=== PATIENT | female | born 1970 | race Caucasian/White ===

== ENCOUNTER 2017-05-20 17:33 | Outpatient (CLI) | payer OTHER | END 2017-05-20 17:34 | disposition EMS.NT | LOC: EMS 17:33 | PROVIDERS: ATTEND Surgery | DX: S41.112A Laceration without foreign body of left upper arm, initial encounter (principal); X78.9XXA Intentional self-harm by unspecified sharp object, initial encounter ==

== ENCOUNTER 2017-05-20 18:31 | Emergency (ER) | payer OTHER ==
--- NOTE | 2017-05-20 18:59 | ED Physician Documentation ---
PD HPI MHE - Stated complaint Stated Complaint: MHE - Chief complaint Chief Complaint: MHE - History obtained from History obtained from: Patient, Police - History of Present Illness Primary symptom: Other (Brought in by [employer] deputy for potential suicidal ideation. She admits she is under a lot of stress, going through divorce. She had some wine tonight and in a fit of anxiety she did cut herself to the left forearm with a knife but denies that this was a suicide attempt. The knife was removed by her brother and then [facility]'s deputies were called and brought her in under involuntary treatment.) Review of Systems Ten Systems: 10 systems reviewed and negative Constitutional: denies: Fever, Chills, Myalgias Nose: reports: Rhinorrhea / runny nose. denies: Sinus pressure / pain Respiratory: reports: Cough. denies: Dyspnea GI: denies: Abdominal Pain, Nausea, Vomiting PD PAST MEDICAL HISTORY - Past Medical History Past Medical History: Yes Psych: Anxiety, Other Other Past Medical History: insomnia - Past Surgical History Past Surgical History: Yes HEENT: Rhinoplasty - Present Medications Home Medications: Ambulatory Orders Medication Instructions Recorded Confirmed Alprazolam 1 mg PO TID PRN 05/20/17 05/20/17 Buspirone HCl 20 mg PO BID 05/20/17 05/20/17 Escitalopram Oxalate [Lexapro] 20 mg PO DAILY 05/20/17 05/20/17 Lorazepam 1 - 2 mg PO DAILY PRN 05/20/17 05/20/17 Nitrofurantoin Monohyd/M-Cryst 1 tab PO Q12H 05/20/17 05/20/17 [Nitrofurantoin [place]-Mcr 100 mg] Norethindrone AC-Eth Estradiol 1 tab PO DAILY 05/20/17 05/20/17 [Junel 1 mg-20 Mcg Tablet] Temazepam [Restoril] 30 mg PO DAILY 05/20/17 05/20/17 Zolpidem Tartrate [Ambien] 10 mg PO DAILY 05/20/17 05/20/17 - Allergies Allergies/Adverse Reactions: Allergies Allergy/AdvReac Type Severity Reaction Status Date / Time No Known Drug Allergies Allergy Verified 05/20/17 18:37 - Social History Does the pt smoke?: No Smoking Status: Never smoker Does the pt drink ETOH?: Yes Does the pt have substance abuse?: No - Family History Family history: reports: Non contributory PD ED PE NORMAL - Vitals Vital signs reviewed: Yes - General General: Alert and oriented X 3, No acute distress - HEENT HEENT: PERRL, EOMI - Neck Neck: Supple, no meningeal sign, No bony TTP - Cardiac Cardiac: RRR, No murmur - Respiratory Respiratory: No respiratory distress, Clear bilaterally - Abdomen Abdomen: Normal bowel sounds, Soft, Non tender - Back Back: No CVA TTP, No spinal TTP - Derm Derm: Normal color, Warm and dry - Extremities Extremities: Other (Shallow linear longitudinal scrapes to the anterior left forearm consistent with self-inflicted lacerations, no deep tissue injury. She says her tetanus is up-to-date.) - Neuro Neuro: Alert and oriented X 3, No motor deficit, No sensory deficit, Normal speech - Psych Psych: Normal mood, Normal affect Results - Vitals Vitals: Vital Signs - 24 hr 05/20/17 18:32 Temperature 37.1 C Heart Rate 79 Respiratory 18 Rate Blood Pressure 153/86 H O2 Saturation 98 Oxygen O2 Source Room air - Labs Labs: Laboratory Tests 05/20/17 05/20/17 05/20/17 19:07 19:07 19:15 WBC 5.3 RBC 4.17 L Hgb 13.7 Hct 39.6 MCV 95.0 MCH 33.0 H MCHC 34.7 RDW 13.8 Plt Count 226 MPV 7.8 L Neut # 3.2 Lymph # 1.6 [place] # 0.4 Eos # 0.1 Baso # 0.0 Absolute Nucleated RBC 0.00 Nucleated RBC % 0.0 Sodium 136 Potassium 4.0 Chloride 103 Carbon Dioxide 24 Anion Gap 9.0 BUN 13 Creatinine 0.7 Estimated GFR (MDRD) 89 Glucose 87 Calcium 8.6 Total Bilirubin 0.6 AST 20 ALT 18 Alkaline Phosphatase 46 Total Protein 7.2 Albumin 4.2 Globulin 3.0 Albumin/Globulin Ratio 1.4 Lipase 25 Urine Color Urine Clarity Urine pH Ur Specific [place] Urine Protein Urine Glucose (UA) Urine Ketones Urine Occult Blood Urine Nitrite Urine Bilirubin Urine Urobilinogen Ur Leukocyte Esterase Ur Microscopic Review Urine Culture Comments Urine HCG, Qual Urine Opiates Screen NEGATIVE Ur Oxycodone Screen NEGATIVE Urine Methadone Screen NEGATIVE Ur Propoxyphene Screen NEGATIVE Ur Barbiturates Screen NEGATIVE Ur Tricyclics Screen NEGATIVE Ur Phencyclidine Scrn NEGATIVE Ur Amphetamine Screen NEGATIVE U Methamphetamines Scrn NEGATIVE U Benzodiazepines Scrn POSITIVE H Urine Cocaine Screen NEGATIVE U Cannabinoids Screen NEGATIVE Ethyl Alcohol 61.6 05/20/17 19:15 WBC RBC Hgb Hct MCV MCH MCHC RDW Plt Count MPV Neut # Lymph # [place] # Eos # Baso # Absolute Nucleated RBC Nucleated RBC % Sodium Potassium Chloride Carbon Dioxide Anion Gap BUN Creatinine Estimated GFR (MDRD) Glucose Calcium Total Bilirubin AST ALT Alkaline Phosphatase Total Protein Albumin Globulin Albumin/Globulin Ratio Lipase Urine Color YELLOW Urine Clarity CLEAR Urine pH 6.0 Ur Specific [place] 1.025 Urine Protein NEGATIVE Urine Glucose (UA) NEGATIVE Urine Ketones NEGATIVE Urine Occult Blood NEGATIVE Urine Nitrite NEGATIVE Urine Bilirubin NEGATIVE Urine Urobilinogen 0.2 (NORMAL) Ur Leukocyte Esterase NEGATIVE Ur Microscopic Review NOT INDICATED Urine Culture Comments NOT INDICATED Urine HCG, Qual NEGATIVE Urine Opiates Screen Ur Oxycodone Screen Urine Methadone Screen Ur Propoxyphene Screen Ur Barbiturates Screen Ur Tricyclics Screen Ur Phencyclidine Scrn Ur Amphetamine Screen U Methamphetamines Scrn U Benzodiazepines Scrn Urine Cocaine Screen U Cannabinoids Screen Ethyl Alcohol PD MEDICAL DECISION MAKING - ED course ED course: 46-year-old woman brought in by [facility]'s deputy for potential suicidal ideation which she denies. She is not legally or clinically intoxicated here. Cooperative mother at the bedside. Stress that we would be happy to see her again if she develops significant depression or suicidal ideation which she continues to deny. Departure - Departure Disposition: 01 Home, Self Care Clinical Impression: Grief reaction Condition: Good Record reviewed to determine appropriate education?: Yes Instructions: ED Stress React Comments: Your blood pressure was elevated today on check into the emergency department. This does not mean that you have hypertension, it is a common phenomenon to come to the emergency department and have elevated blood pressure. I recommend that you see your primary care physician within the week to have it rechecked when you are feeling better. Call your doctor to arrange a follow-up appointment, make the next available appointment. In the interim, return anytime if worse or if new symptoms develop.
[2017-05-20 19:14] LABS: BASOPHILS % (AUTO) 0.5 %; EOSINOPHILS # (AUTO) 0.1 10^3/uL (0.0-0.7); EOSINOPHILS % (AUTO) 2.5 %; HCT - HEMATOCRIT 39.6 % (37.0-47.0); HGB - HEMOGLOBIN 13.7 g/dL (12.0-16.0); LYMPHOCYTES # (AUTO) 1.6 10^3/uL (1.5-3.5); LYMPHOCYTES % (AUTO) 30.3 %; MEAN CORPUSCULAR HGB CONC 34.7 g/dL (32.0-36.0); MEAN PLATELET VOLUME 7.8 fL (7.9-10.8); MONOCYTES # (AUTO) 0.4 10^3/uL (0.0-1.0); MONOCYTES % (AUTO) 7.1 %; NEUTROPHILS # (AUTO) 3.2 10^3/uL (1.5-6.6); NEUTROPHILS % (AUTO) 59.6 %; RED BLOOD COUNT 4.17 10^6/uL (4.20-5.40); RED CELL DISTRIBUTION WIDTH 13.8 % (12.0-15.0); UNCORRECTED WHITE BLOOD COUNT 5.3 x10^3/uL; WHITE BLOOD COUNT 5.3 x10^3/uL (4.8-10.8)
[2017-05-20 19:24] LABS: ALBUMIN/GLOBULIN RATIO 1.4 (1.0-2.2); BILIRUBIN,TOTAL 0.6 mg/dL (0.2-1.0); CALCIUM 8.6 mg/dL (8.5-10.3); CREATININE 0.7 mg/dL (0.4-1.0); TOTAL PROTEIN 7.2 g/dL (6.7-8.2)
[2017-05-20 19:29] LABS: BILIRUBIN,URINE NEGATIVE (NEGATIVE); UA CHARGE (STRIP ONLY) YES; UR CULTURE IF IND NOT INDICATED
[2017-05-20 19:31] LABS: HCG UR QUAL NEGATIVE
[2017-05-20] MEDS ORDERED: BACITRACIN OINT TOP ONE (19:54)
[2017-05-20] MEDS ORDERED: BACITRACIN OINT TOP STA (19:54)
[2017-05-20 20:00] VITALS: BP 148/89
== END 2017-05-20 20:00 | disposition home or self-care (01) ==
LOC: ED 18:31
DX: F43.20 Adjustment disorder, unspecified (principal); S51.812A Laceration without foreign body of left forearm, initial encounter; X78.1XXA Intentional self-harm by knife, initial encounter; R03.0 Elevated blood-pressure reading, without diagnosis of hypertension
CPT/HCPCS: 36415; 80053; 80306; 80320; 81003; 81025; 83690; 85025; 99284; A9270; 81001; 87086

== ENCOUNTER 2020-05-04 08:00 | Outpatient (CLI) | payer OTHER ==
--- NOTE | 2020-05-04 15:13 | XRAY Report ---
PROCEDURE: Ankle 3 View LT INDICATIONS: LEFT ANKLE PAIN TECHNIQUE: 3 views of the ankle were acquired. COMPARISON: None FINDINGS: Bones: No fractures or dislocations. Ankle mortise is normally aligned. No suspicious bony lesions . Soft tissues: Moderate tibiotalar joint effusion. Achilles tendon appears normal. IMPRESSION: Moderate effusion. No visualized acute fracture or dislocation. However, occult injury c annot be excluded. Recommend short interval imaging follow-up in 7-10 days as clinically indicated fo r additional evaluation. Reviewed by: Steffi Hayes MD on 05/04/2020 3:12 PM PDT Approved by: Steffi Hayes MD on 05/04/2020 3:12 PM PDT Station ID: [id number]
== END 2020-05-04 23:59 | disposition home or self-care (01) ==
LOC: DI.S 08:00
PROVIDERS: ATTEND Physician Assistant
DX: M25.572 Pain in left ankle and joints of left foot (principal); M25.472 Effusion, left ankle

== ENCOUNTER 2020-09-13 12:00 | Outpatient (CLI) | payer OTHER | END 2020-09-13 12:01 | disposition critical access hospital (66) | LOC: EMS 12:00 | PROVIDERS: ATTEND Emergency Medicine | DX: T50.902A Poisoning by unspecified drugs, medicaments and biological substances, intentional self-harm, initial encounter (principal) | CPT/HCPCS: A0425; A0427 ==

== ENCOUNTER 2020-09-13 12:33 | Emergency (ER) | payer OTHER ==
--- NOTE | 2020-09-13 13:08 | ED Physician Documentation ---
PD HPI MHE - Stated complaint Stated Complaint: SI - Chief complaint Chief Complaint: MHE - History obtained from History obtained from: Patient, EMS, Police - History of Present Illness Primary symptom: Self harm - OD Timing - onset: How many hours ago (3) Pain level max: 0 Pain level now: 0 Contributing factors: Family - Additional information Additional information: Patient is a 50-year-old female who presents to the emergency department stating that she is unsure why she is here. Per EMS her brother wrestle the gun away from her and she grabbed her bottle of lorazepam and took several pills. Unknown amount. The ingestion was approximately 3 hours prior to arrival. Patient states she also drank a bottle of "skinny girl lia". She states she is not suicidal or at all. She states she has no intention of hurting herself. She states that she was "tired and wanted to go back to sleep". Patient states that she has a history of anxiety. Denies any prior suicide attempts. 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 As well. Police did place the patient on an involuntary hold. Her brother states that she was actively suicidal and threatening to kill herself according to the police paperwork. Review of Systems Constitutional: denies: Fever, Chills Respiratory: denies: Cough GI: denies: Vomiting, Diarrhea : denies: Dysuria Skin: denies: Rash Musculoskeletal: denies: Neck pain, Back pain Neurologic: denies: Headache PD PAST MEDICAL HISTORY - Past Medical History Past Medical History: Yes Psych: Anxiety, Other - Past Surgical History Past Surgical History: Yes HEENT: Rhinoplasty - Present Medications Home Medications: Ambulatory Orders Medication Instructions Recorded Confirmed ALPRAZolam [Alprazolam] 1 mg PO TID PRN 05/20/17 05/20/17 Buspirone HCl 20 mg PO BID 05/20/17 05/20/17 Escitalopram Oxalate [Lexapro] 20 mg PO DAILY 05/20/17 05/20/17 LORazepam [Lorazepam] 1 - 2 mg PO DAILY PRN 05/20/17 05/20/17 Nitrofurantoin Monohyd/M-Cryst 1 tab PO Q12H 05/20/17 05/20/17 [Nitrofurantoin [place]-Mcr 100 mg] Norethindrone AC-Eth Estradiol 1 tab PO DAILY 05/20/17 05/20/17 [Junel 1 mg-20 Mcg Tablet] Temazepam [Restoril] 30 mg PO DAILY 05/20/17 05/20/17 Zolpidem Tartrate [Ambien] 10 mg PO DAILY 05/20/17 05/20/17 - Allergies Allergies/Adverse Reactions: Allergies Allergy/AdvReac Type Severity Reaction Status Date / Time No Known Drug Allergies Allergy Verified 09/13/20 12:49 - Social History Does the pt smoke?: No Smoking Status: Never smoker Does the pt drink ETOH?: Yes Does the pt have substance abuse?: No PD ED PE NORMAL - Vitals Vital signs reviewed: Yes - General General: Alert and oriented X 3, No acute distress - HEENT HEENT: Moist mucous membranes - Neck Neck: Supple, no meningeal sign - Cardiac Cardiac: RRR, Strong equal pulses - Respiratory Respiratory: No respiratory distress, Clear bilaterally - Abdomen Abdomen: Soft, Non tender, Non distended - Derm Derm: Warm and dry, No rash - Extremities Extremities: No edema, No calf tenderness / cord - Neuro Neuro: Alert and oriented X 3 - Psych Psych: Normal mood, Normal affect Results - Vitals Vitals: Vital Signs - 24 hr 09/13/20 09/13/20 09/13/20 12:42 13:00 14:12 Temperature 37.0 C 36.9 C Heart Rate 103 H 86 84 Respiratory 20 18 22 Rate Blood Pressure 167/110 H 153/98 H 132/87 H O2 Saturation 95 98 94 09/13/20 15:08 Temperature Heart Rate 89 Respiratory 18 Rate Blood Pressure 143/87 H O2 Saturation 99 Oxygen O2 Source Room air - EKG (time done) 1427 Rate: Rate (enter#) (82) Rhythm: NSR [place]: Normal Intervals: Normal IA QRS: Normal Ischemia: Normal ST segments - Labs Labs: Laboratory Tests 09/13/20 09/13/20 09/13/20 13:16 13:16 13:16 WBC 6.1 RBC 4.51 Hgb 13.9 Hct 42.5 MCV 94.2 MCH 30.8 MCHC 32.7 RDW 14.4 Plt Count 263 MPV 9.6 Neut # (Auto) 4.3 Lymph # (Auto) 1.5 [place] # (Auto) 0.2 Eos # (Auto) 0.1 Baso # (Auto) 0.0 Absolute Nucleated RBC 0.00 Nucleated RBC % 0.0 Sodium 139 Potassium 3.8 Chloride 105 Carbon Dioxide 21 Anion Gap 13.0 BUN 12 Creatinine 0.7 Estimated GFR (MDRD) 88 L Glucose 94 Calcium 9.1 Total Bilirubin 0.3 AST 20 ALT 19 Alkaline Phosphatase 40 L Total Protein 7.5 Albumin 4.3 Globulin 3.2 Albumin/Globulin Ratio 1.3 Lipase 29 TSH 1.44 Urine Color Urine Clarity Urine pH Ur Specific [place] Urine Protein Urine Glucose (UA) Urine Ketones Urine Occult Blood Urine Nitrite Urine Bilirubin Urine Urobilinogen Ur Leukocyte Esterase Ur Microscopic Review Urine Culture Comments Urine HCG, Qual Nasal Adenovirus (PCR) Nasal B. parapertussis DNA (PCR) Nasal Coronavir 229E PCR Nasal Coronavir HKU1 PCR Nasal Coronavir NL63 PCR Nasal Coronavir OC43 PCR Nasal Enterovir/Rhinovir PCR Nasal Influenza B PCR Nasal Influenza A PCR Nasal Parainfluen 1 PCR Nasal Parainfluen 2 PCR Nasal Parainfluen 3 PCR Nasal Parainfluen 4 PCR Nasal RSV (PCR) Nasal B.pertussis DNA PCR Nasal C.pneumoniae (PCR) [place] Human Metapneumo PCR Nasal M.pneumoniae (PCR) Nasal SARS-CoV-2 (PCR) Salicylates < 6.0 Urine Opiates Screen Ur Oxycodone Screen Urine Methadone Screen Ur Propoxyphene Screen Acetaminophen < 10 L Ur Barbiturates Screen Ur Tricyclics Screen Ur Phencyclidine Scrn Ur Amphetamine Screen U Methamphetamines Scrn U Benzodiazepines Scrn Urine Cocaine Screen U Cannabinoids Screen Ethyl Alcohol 187.0 09/13/20 09/13/20 09/13/20 13:42 13:50 17:30 WBC RBC Hgb Hct MCV MCH MCHC RDW Plt Count MPV Neut # (Auto) Lymph # (Auto) [place] # (Auto) Eos # (Auto) Baso # (Auto) Absolute Nucleated RBC Nucleated RBC % Sodium Potassium Chloride Carbon Dioxide Anion Gap BUN Creatinine Estimated GFR (MDRD) Glucose Calcium Total Bilirubin AST ALT Alkaline Phosphatase Total Protein Albumin Globulin Albumin/Globulin Ratio Lipase TSH Urine Color STRAW Urine Clarity CLEAR Urine pH 6.0 Ur Specific [place] <=1.005 Urine Protein NEGATIVE Urine Glucose (UA) NEGATIVE Urine Ketones NEGATIVE Urine Occult Blood NEGATIVE Urine Nitrite NEGATIVE Urine Bilirubin NEGATIVE Urine Urobilinogen 0.2 (NORMAL) Ur Leukocyte Esterase NEGATIVE Ur Microscopic Review NOT INDICATED Urine Culture Comments NOT INDICATED Urine HCG, Qual NEGATIVE Nasal Adenovirus (PCR) NOT DETECTED Nasal B. parapertussis DNA (PCR) NOT DETECTED Nasal Coronavir 229E PCR NOT DETECTED Nasal Coronavir HKU1 PCR NOT DETECTED Nasal Coronavir NL63 PCR NOT DETECTED Nasal Coronavir OC43 PCR NOT DETECTED Nasal Enterovir/Rhinovir PCR NOT DETECTED Nasal Influenza B PCR NOT DETECTED Nasal Influenza A PCR NOT DETECTED Nasal Parainfluen 1 PCR NOT DETECTED Nasal Parainfluen 2 PCR NOT DETECTED Nasal Parainfluen 3 PCR NOT DETECTED Nasal Parainfluen 4 PCR NOT DETECTED Nasal RSV (PCR) NOT DETECTED Nasal B.pertussis DNA PCR NOT DETECTED Nasal C.pneumoniae (PCR) NOT DETECTED [place] Human Metapneumo PCR NOT DETECTED Nasal M.pneumoniae (PCR) NOT DETECTED Nasal SARS-CoV-2 (PCR) NOT DETECTED Salicylates Urine Opiates Screen NEGATIVE Ur Oxycodone Screen NEGATIVE Urine Methadone Screen NEGATIVE Ur Propoxyphene Screen NEGATIVE Acetaminophen Ur Barbiturates Screen NEGATIVE Ur Tricyclics Screen NEGATIVE Ur Phencyclidine Scrn NEGATIVE Ur Amphetamine Screen NEGATIVE U Methamphetamines Scrn NEGATIVE U Benzodiazepines Scrn POSITIVE H Urine Cocaine Screen NEGATIVE U Cannabinoids Screen NEGATIVE Ethyl Alcohol 80.2 PD MEDICAL DECISION MAKING - ED course Complexity details: reviewed results, re-evaluated patient, considered differential, d/w patient, d/w claims consultant ED course: Patient placed on an involuntary treatment hold by police. She was allowed to sober in the emergency department. DCR dispatched. Patient is medically clear for psychiatric care. Sanjana BYRNE, evaluated the patient and the patient was placed on an involuntary hold. Patient signed out to the oncoming emergency department physician. This document was made in part using voice recognition software. While efforts are made to proofread this document, sound alike and grammatical errors may occur. Poison control was also contacted. The patient was observed for over 6 hours postingestion with no ill effects. No sedation. No respiratory issues. Departure - Departure Clinical Impression: Suicidal ideations Suicidal overdose Qualifiers: Encounter type: initial encounter Qualified Code(s): T50.902A - Poisoning by unspecified drugs, medicaments and biological substances, intentional self-harm, initial encounter Condition: Stable
[2020-09-13 13:22] LABS: BASOPHILS % (AUTO) 0.5 %; EOSINOPHILS # (AUTO) 0.1 10^3/uL (0.0-0.7); HGB - HEMOGLOBIN 13.9 g/dL (12.0-16.0); LYMPHOCYTES # (AUTO) 1.5 10^3/uL (1.5-3.5); LYMPHOCYTES % (AUTO) 25.1 %; MEAN CORPUSCULAR HEMOGLOBIN 30.8 pg (27.0-31.0); MEAN CORPUSCULAR HGB CONC 32.7 g/dL (32.0-36.0); MEAN CORPUSCULAR VOLUME 94.2 fL (81.0-99.0); MEAN PLATELET VOLUME 9.6 fL (7.9-10.8); MONOCYTES # (AUTO) 0.2 10^3/uL (0.0-1.0); MONOCYTES % (AUTO) 3.3 %; NEUTROPHILS # (AUTO) 4.3 10^3/uL (1.5-6.6); NEUTROPHILS % (AUTO) 69.9 %; PLT - PLATELET COUNT 263 10^3/uL (130-450); RED BLOOD COUNT 4.51 10^6/uL (4.20-5.40); RED CELL DISTRIBUTION WIDTH 14.4 % (12.0-15.0); WHITE BLOOD COUNT 6.1 x10^3/uL (4.8-10.8)
[2020-09-13 13:45] LABS: ACETAMINOPHEN < 10 ug/mL (10-30); ALBUMIN 4.3 g/dL (3.2-5.5); ALBUMIN/GLOBULIN RATIO 1.3 (1.0-2.2); ALKALINE PHOSPHATASE 40 IU/L (42-121); ALT ALANINE AMINOTRANSFERASE 19 IU/L (10-60); AST ASPARTATE AMINOTRANSFERASE 20 IU/L (10-42); BILIRUBIN,TOTAL 0.3 mg/dL (0.2-1.0); BUN - BLOOD UREA NITROGEN 12 mg/dL (6-20); CALCIUM 9.1 mg/dL (8.5-10.3); CARBON DIOXIDE - CO2 21 mmol/L (21-32); CHLORIDE 105 mmol/L (101-111); CREATININE 0.7 mg/dL (0.4-1.0); GLUCOSE 94 mg/dL (70-100); LIPASE 29 U/L (22-51); SALICYLATE < 6.0 mg/dL; TOTAL PROTEIN 7.5 g/dL (6.7-8.2)
[2020-09-13 14:15] LABS: MUDS CUTOFF CONCENTRATIONS CUTOFF CONC BELOW:
[2020-09-13 14:21] LABS: BILIRUBIN,URINE NEGATIVE (NEGATIVE); GLUCOSE, URINE (UA) NEGATIVE (NEGATIVE); KETONES,URINE (UA) NEGATIVE (NEGATIVE); LEUKOCYTE ESTERASE, URINE NEGATIVE (NEGATIVE); NITRITE,URINE NEGATIVE (NEGATIVE); OCCULT BLOOD,URINE NEGATIVE (NEGATIVE); PROTEIN,URINE NEGATIVE (NEGATIVE); UROBILINOGEN,URINE 0.2 (NORMAL) E.U./dL (NORMAL)
[2020-09-13 14:26] LABS: CLARITY,URINE CLEAR (CLEAR); HCG UR QUAL NEGATIVE
[2020-09-13 14:31] LABS: AMPHETAMINE SCREEN,URINE NEGATIVE (NEGATIVE); BENZODIAZEPINES SCREEN, URINE POSITIVE (NEGATIVE); COCAINE SCREEN URINE NEGATIVE (NEGATIVE); METHADONE SCREEN, URINE NEGATIVE (NEGATIVE); METHAMPHETAMINES SCREEN, URINE NEGATIVE (NEGATIVE); OPIATE SCREEN, URINE NEGATIVE (NEGATIVE); OXYCODONE SCREEN, URINE NEGATIVE (NEGATIVE); TRICYCLIC ANTIDEPRESSANT,URINE NEGATIVE (NEGATIVE)
[2020-09-13 14:32] LABS: PROPOXYPHENE SCREEN, URINE NEGATIVE (NEGATIVE)
[2020-09-13 14:42] LABS: C. PNEUMONIAE- RESP PCR PANEL NOT DETECTED
[2020-09-13] MEDS ORDERED: ACETAMINOPHEN 325 MG TABLET PO STA (22:35)
[2020-09-13 23:29] VITALS: BP 165/106
[2020-09-13] MEDS ORDERED: LORazepam 1 MG TABLET PO STA (23:57)
--- NOTE | 2020-09-13 23:59 | ED Physician Documentation ---
ED Addendum - Addendum Addendum: 09/13/20 23:57 The patient was evaluated by CATY Allan. She was deemed in need of i nvoluntary mcc for suicidal risk. The patient will be transferred to [facility] for psychiatric care. She did request some medications to help with anxiety for the ride. Ativan will be provided as a single dose here. Disposition the patient is transferred to psychiatric facility Diagnoses: acute suicidal ideation with suicide attempt and gesture. Depression.
== END 2020-09-14 01:00 ==
LOC: EDUNIT# → ED 12:33
DX: T42.4X2A Poisoning by benzodiazepines, intentional self-harm, initial encounter (principal); Y92.009 Unspecified place in unspecified non-institutional (private) residence as the place of occurrence of the external cause; F32.9 Major depressive disorder, single episode, unspecified; F41.9 Anxiety disorder, unspecified; Z20.822 Contact with and (suspected) exposure to COVID-19
CPT/HCPCS: 0202U; 36415; 80053; 80306; 80307; 80320; 80329; 81003; 81025; 83690; 84443; 85025; 93005; 99284; 99285; A9270; J8499; 81001; 87086

== ENCOUNTER 2021-04-16 06:35 | Outpatient (CLI) | payer OTHER | END 2021-04-16 06:36 | disposition critical access hospital (66) | LOC: EMS 06:35 | DX: R10.9 Unspecified abdominal pain (principal); R11.10 Vomiting, unspecified | CPT/HCPCS: A0425; A0427 ==

== ENCOUNTER 2021-04-16 07:07 | Observation (INO) | payer OTHER ==
--- NOTE | 2021-04-16 07:13 | ED Physician Documentation ---
PD HPI ABD PAIN - Stated complaint Stated Complaint: ABD PX/VOMITING - History obtained from History obtained from: Patient - History of Present Illness Timing - onset: How many hours ago (3-4), Last night Timing - duration: Hours Timing - details: Abrupt onset, Still present Quality: Cramping, Aching, Pain Location: RUQ, Epigastric Radiation: Upper back Improved by: No: Laying still, Vomiting Worsened by: Eating, Moving, Position, Palpation. No: Breathing Associated symptoms: Nausea. No: Fever, Diarrhea, Constipation, Dysuria Similar symptoms before: Has not had sx before Recently seen: Not recently seen Review of Systems Constitutional: denies: Fever, Chills Nose: denies: Rhinorrhea / runny nose, Congestion Throat: denies: Sore throat Cardiac: denies: Chest pain / pressure Respiratory: denies: Cough GI: reports: Abdominal Pain (the past few hours, abruptly), Nausea. denies: Constipation, Diarrhea : denies: Dysuria Neurologic: denies: Generalized weakness, Near syncope PD PAST MEDICAL HISTORY - Past Medical History Cardiovascular: None Respiratory: None Neuro: None Endocrine/Autoimmune: None GI: None Psych: Anxiety, Other - Past Surgical History Past Surgical History: Yes HEENT: Rhinoplasty - Present Medications Home Medications: Ambulatory Orders Medication Instructions Recorded Confirmed ALPRAZolam [Alprazolam] 1 mg PO TID PRN 05/20/17 04/16/21 Buspirone HCl 20 mg PO BID 05/20/17 04/16/21 Escitalopram Oxalate [Lexapro] 20 mg PO DAILY 05/20/17 04/16/21 LORazepam [Lorazepam] 1 - 2 mg PO DAILY PRN 05/20/17 04/16/21 Norethindrone AC-Eth Estradiol 1 tab PO DAILY 05/20/17 04/16/21 [Junel 1 mg-20 Mcg Tablet] Zolpidem Tartrate [Ambien] 10 mg PO DAILY 05/20/17 04/16/21 - Allergies Allergies/Adverse Reactions: Allergies Allergy/AdvReac Type Severity Reaction Status Date / Time No Known Drug Allergies Allergy Verified 04/16/21 07:23 - Social History Does the pt smoke?: No Smoking Status: Never smoker Does the pt drink ETOH?: Yes Does the pt have substance abuse?: No PD ED PE NORMAL - Vitals Vital signs reviewed: Yes - General General: Alert and oriented X 3, Well developed/nourished, Other (appears in considerable discomfort) - Neck Neck: Supple, no meningeal sign, No adenopathy - Cardiac Cardiac: RRR, No murmur - Respiratory Respiratory: Clear bilaterally - Abdomen Abdomen: Soft, Non distended, Other (tender with guarding epigastric and RUQ area without percussion tenderness. ). No: Normal bowel sounds (increased upper abd) - Female Female : Deferred - Rectal Rectal: Deferred - Back Back: No CVA TTP - Derm Derm: Normal color, Warm and dry - Extremities Extremities: No edema, No calf tenderness / cord - Neuro Neuro: Alert and oriented X 3, No motor deficit, Normal speech Results - Vitals Vitals: Vital Signs - 24 hr 04/16/21 04/16/21 04/16/21 07:07 07:31 08:26 Temperature 36.3 C L Heart Rate 64 69 73 Respiratory 16 16 16 Rate Blood Pressure 179/95 H 158/96 H 139/78 H O2 Saturation 97 97 100 04/16/21 04/16/21 04/16/21 08:43 09:58 10:32 Temperature Heart Rate 72 75 80 Respiratory 15 16 12 Rate Blood Pressure 145/90 H 147/90 H 134/91 H O2 Saturation 93 95 98 04/16/21 04/16/21 10:35 11:04 Temperature Heart Rate 76 76 Respiratory 11 L 12 Rate Blood Pressure 134/91 H 125/86 H O2 Saturation 96 97 Oxygen O2 Source Nasal cannula - Labs Labs: Laboratory Tests 04/16/21 04/16/21 04/16/21 08:01 08:01 09:07 WBC 6.2 RBC 4.16 L Hgb 13.1 Hct 39.2 MCV 94.2 MCH 31.5 H MCHC 33.4 RDW 14.5 Plt Count 193 MPV 10.1 Neut # (Auto) 4.6 Lymph # (Auto) 1.2 L [place] # (Auto) 0.2 Eos # (Auto) 0.1 Baso # (Auto) 0.0 Absolute Nucleated RBC 0.00 Nucleated RBC % 0.0 Sodium 140 Potassium 3.0 L Chloride 107 Carbon Dioxide 23 Anion Gap 10.0 BUN 15 Creatinine 0.6 Estimated GFR (MDRD) 105 Glucose 210 H Lactic Acid Calcium 8.2 L Magnesium 1.6 L Total Bilirubin 0.3 AST 13 ALT 17 Alkaline Phosphatase 29 L Total Protein 6.5 L Albumin 3.7 Globulin 2.8 Albumin/Globulin Ratio 1.3 Lipase 23 Urine Color LT. YELLOW Urine Clarity CLEAR Urine pH 6.0 Ur Specific Marshall 1.020 Urine Protein NEGATIVE Urine Glucose (UA) >=1000 H Urine Ketones 15 H Urine Occult Blood NEGATIVE Urine Nitrite NEGATIVE Urine Bilirubin NEGATIVE Urine Urobilinogen 0.2 (NORMAL) Ur Leukocyte Esterase NEGATIVE Ur Microscopic Review NOT INDICATED Urine Culture Comments NOT INDICATED Nasal Adenovirus (PCR) Nasal B. parapertussis DNA (PCR) Nasal Coronavir 229E PCR Nasal Coronavir HKU1 PCR Nasal Coronavir NL63 PCR Nasal Coronavir OC43 PCR Nasal Enterovir/Rhinovir PCR Nasal Influenza B PCR Nasal Influenza A PCR Nasal Parainfluen 1 PCR Nasal Parainfluen 2 PCR Nasal Parainfluen 3 PCR Nasal Parainfluen 4 PCR Nasal RSV (PCR) Nasal B.pertussis DNA PCR Nasal C.pneumoniae (PCR) [place] Human Metapneumo PCR Nasal M.pneumoniae (PCR) Nasal SARS-CoV-2 (PCR) Urine Opiates Screen Ur Oxycodone Screen Urine Methadone Screen Ur Propoxyphene Screen Ur Barbiturates Screen Ur Tricyclics Screen Ur Phencyclidine Scrn Ur Amphetamine Screen U Methamphetamines Scrn U Benzodiazepines Scrn Urine Cocaine Screen U Cannabinoids Screen Ethyl Alcohol < 5.0 04/16/21 04/16/21 04/16/21 09:07 09:59 10:18 WBC RBC Hgb Hct MCV MCH MCHC RDW Plt Count MPV Neut # (Auto) Lymph # (Auto) [place] # (Auto) Eos # (Auto) Baso # (Auto) Absolute Nucleated RBC Nucleated RBC % Sodium Potassium Chloride Carbon Dioxide Anion Gap BUN Creatinine Estimated GFR (MDRD) Glucose Lactic Acid 1.9 Calcium Magnesium Total Bilirubin AST ALT Alkaline Phosphatase Total Protein Albumin Globulin Albumin/Globulin Ratio Lipase Urine Color Urine Clarity Urine pH Ur Specific Marshall Urine Protein Urine Glucose (UA) Urine Ketones Urine Occult Blood Urine Nitrite Urine Bilirubin Urine Urobilinogen Ur Leukocyte Esterase Ur Microscopic Review Urine Culture Comments Nasal Adenovirus (PCR) NOT DETECTED Nasal B. parapertussis DNA (PCR) NOT DETECTED Nasal Coronavir 229E PCR NOT DETECTED Nasal Coronavir HKU1 PCR NOT DETECTED Nasal Coronavir NL63 PCR NOT DETECTED Nasal Coronavir OC43 PCR NOT DETECTED Nasal Enterovir/Rhinovir PCR NOT DETECTED Nasal Influenza B PCR NOT DETECTED Nasal Influenza A PCR NOT DETECTED Nasal Parainfluen 1 PCR NOT DETECTED Nasal Parainfluen 2 PCR NOT DETECTED Nasal Parainfluen 3 PCR NOT DETECTED Nasal Parainfluen 4 PCR NOT DETECTED Nasal RSV (PCR) NOT DETECTED Nasal B.pertussis DNA PCR NOT DETECTED Nasal C.pneumoniae (PCR) NOT DETECTED [place] Human Metapneumo PCR NOT DETECTED Nasal M.pneumoniae (PCR) NOT DETECTED Nasal SARS-CoV-2 (PCR) NOT DETECTED Urine Opiates Screen POSITIVE H Ur Oxycodone Screen NEGATIVE Urine Methadone Screen NEGATIVE Ur Propoxyphene Screen NEGATIVE Ur Barbiturates Screen NEGATIVE Ur Tricyclics Screen NEGATIVE Ur Phencyclidine Scrn NEGATIVE Ur Amphetamine Screen NEGATIVE U Methamphetamines Scrn NEGATIVE U Benzodiazepines Scrn POSITIVE H Urine Cocaine Screen NEGATIVE U Cannabinoids Screen NEGATIVE Ethyl Alcohol - Rads (name of study) abd CT Radiology: Prelim report reviewed, Discussed with rads (Small closed loop small bowel with obstruction and edema of the wall.), See rad report PD MEDICAL DECISION MAKING - ED course Complexity details: reviewed results, re-evaluated patient (Patient needing multiple repeat doses of pain medicine for maintaining moderate comfort. I have conveyed this to Dr. Springer.), considered differential (Consideration for ulcer versus pancreatitis versus obstruction versus gallbladder versus perforated v iscus or other problem. Her degree of pain is considerable so have a high suspicion for pathology. We will get labs and CT scan.), d/w patient, d/w data governance consultant (Dr. Springer, confectionery laboratory manager for surgery, who will write orders and come see the patient. ) Departure - Departure Disposition: ED Transfer to [facility] Clinical Impression: Acute upper abdominal pain, Small bowel obstruction Condition: Stable Record reviewed to determine appropriate education?: Yes
[2021-04-16] MEDS ORDERED: SODIUM CHLORIDE 0.9% 1,000 ML IV STA ×2 (07:17→10:14)
[2021-04-16] MEDS ORDERED: HYDROmorphone 1 MG/ML CARPUJECT IVP STA ×3 (07:17→09:34)
[2021-04-16] MEDS ORDERED: DROPERIDOL 5 MG/2 ML VIAL IVP STA (07:18)
[2021-04-16] MEDS ORDERED: KETOROLAC 15 MG/ML VIAL IVP STA (07:20)
[2021-04-16] MEDS ORDERED: IOPAMIDOL-300 100 ML VIAL ONE (07:30)
[2021-04-16 08:07] LABS: BASOPHILS % (AUTO) 0.3 %; EOSINOPHILS # (AUTO) 0.1 10^3/uL (0.0-0.7); EOSINOPHILS % (AUTO) 1.1 %; HCT - HEMATOCRIT 39.2 % (37.0-47.0); HGB - HEMOGLOBIN 13.1 g/dL (12.0-16.0); LYMPHOCYTES # (AUTO) 1.2 10^3/uL (1.5-3.5); LYMPHOCYTES % (AUTO) 19.3 %; MEAN CORPUSCULAR HEMOGLOBIN 31.5 pg (27.0-31.0); MEAN CORPUSCULAR HGB CONC 33.4 g/dL (32.0-36.0); MEAN CORPUSCULAR VOLUME 94.2 fL (81.0-99.0); MEAN PLATELET VOLUME 10.1 fL (7.9-10.8); MONOCYTES # (AUTO) 0.2 10^3/uL (0.0-1.0); MONOCYTES % (AUTO) 3.4 %; NEUTROPHILS # (AUTO) 4.6 10^3/uL (1.5-6.6); NEUTROPHILS % (AUTO) 75.4 %; PLT - PLATELET COUNT 193 10^3/uL (130-450); RED BLOOD COUNT 4.16 10^6/uL (4.20-5.40); RED CELL DISTRIBUTION WIDTH 14.5 % (12.0-15.0); WHITE BLOOD COUNT 6.2 x10^3/uL (4.8-10.8)
[2021-04-16] MEDS ORDERED: KETAMINE 500 MG/10 ML VIAL IVP STA ×2 (08:08→10:16)
[2021-04-16 08:21] LABS: ALBUMIN 3.7 g/dL (3.2-5.5); ALBUMIN/GLOBULIN RATIO 1.3 (1.0-2.2); ALKALINE PHOSPHATASE 29 IU/L (42-121); ALT ALANINE AMINOTRANSFERASE 17 IU/L (10-60); AST ASPARTATE AMINOTRANSFERASE 13 IU/L (10-42); BILIRUBIN,TOTAL 0.3 mg/dL (0.2-1.0); BUN - BLOOD UREA NITROGEN 15 mg/dL (6-20); CALCIUM 8.2 mg/dL (8.5-10.3); CARBON DIOXIDE - CO2 23 mmol/L (21-32); CHLORIDE 107 mmol/L (101-111); CREATININE 0.6 mg/dL (0.4-1.0); ETOH - ETHANOL < 5.0 mg/dL; GFR - MDRD 105 (>89); GLUCOSE 210 mg/dL (70-100); LIPASE 23 U/L (22-51); MAGNESIUM 1.6 mg/dL (1.7-2.8); SODIUM 140 mmol/L (135-145); TOTAL PROTEIN 6.5 g/dL (6.7-8.2)
[2021-04-16] MEDS ORDERED: FAMOTIDINE 20 MG/2 ML VIAL IVP STA (08:26)
[2021-04-16] MEDS ORDERED: IOPAMIDOL-300 100 ML VIAL IVP ONE (09:08)
[2021-04-16 09:11] LABS: MUDS CUTOFF CONCENTRATIONS CUTOFF CONC BELOW:
[2021-04-16 09:14] LABS: BILIRUBIN,URINE NEGATIVE (NEGATIVE); GLUCOSE, URINE (UA) >=1000 mg/dL (NEGATIVE); KETONES,URINE (UA) 15 mg/dL (NEGATIVE); LEUKOCYTE ESTERASE, URINE NEGATIVE (NEGATIVE); NITRITE,URINE NEGATIVE (NEGATIVE); OCCULT BLOOD,URINE NEGATIVE (NEGATIVE); PROTEIN,URINE NEGATIVE (NEGATIVE); UROBILINOGEN,URINE 0.2 (NORMAL) E.U./dL (NORMAL)
[2021-04-16 09:19] LABS: CLARITY,URINE CLEAR (CLEAR)
[2021-04-16 09:28] LABS: AMPHETAMINE SCREEN,URINE NEGATIVE (NEGATIVE); BARBITURATE SCREEN,UR NEGATIVE (NEGATIVE); BENZODIAZEPINES SCREEN, URINE POSITIVE (NEGATIVE); COCAINE SCREEN URINE NEGATIVE (NEGATIVE); METHADONE SCREEN, URINE NEGATIVE (NEGATIVE); METHAMPHETAMINES SCREEN, URINE NEGATIVE (NEGATIVE); OPIATE SCREEN, URINE POSITIVE (NEGATIVE); OXYCODONE SCREEN, URINE NEGATIVE (NEGATIVE); PROPOXYPHENE SCREEN, URINE NEGATIVE (NEGATIVE); THC CANNABINOID SCREEN, URINE NEGATIVE (NEGATIVE); TRICYCLIC ANTIDEPRESSANT,URINE NEGATIVE (NEGATIVE)
--- NOTE | 2021-04-16 10:52 | CT Report ---
PROCEDURE: 3 views of the left foot. INDICATIONS: The right kidney has a 3.5 x 4.0 x 3.6 cm simple cyst. CONTRAST: The proximal aorta is not well visualized however. TECHNIQUE: After the administration of intravenous contrast, 5 mm thick sections acquired from the diaphragm to the iliac crests. 5 mm coronal and sagittal reformats were performed. For radiation dose reduction, the following was used: automated exposure control, adjustment of mA and/or kV according to patient size. COMPARISON: There are degenerative changes of the interphalangeal joints area there is a fracture of the proximal phalanx of the great toe. 1. Fracture of the proximal phalanx of the great toe. 2. Degenerative changes of the toes. 3. Vascular calcifications in the foot. FINDINGS: Image quality: Excellent. Lung bases: Lung bases are clear. Heart size is normal. Solid organs: Liver and spleen are normal in size and enhancement. Gallbladder vasculature has athe rosclerotic calcifications. Biliary system is non dilated. Pancreas enhances normally. No adrenal nodules. Kidneys demonstrate normal size and enhancement, without hydronephrosis. Peritoneum and bowel: The distal esophagus is normal. There is dilated small bowel in the right mid a bdomen just inferior to the right lobe of the liver which demonstrates hyperenhancement of the dooley. Proximal small bowel loops are slightly dilated. Contrast does not progress beyond this point. The a ppearance is suspicious for a closed loop obstruction with a rotation of the vascular pedicle. Nodes and vessels: No retroperitoneal or mesenteric adenopathy by size criteria. Aorta and inferior vena cava are normal in size. Miscellaneous: No ventral hernias. IMPRESSION: Closed-loop obstruction of the mid to distal ileum in the right midabdomen with small bow el obstruction proximally. The dooley of the involved segment of small bowel demonstrate hyperenhancem ent concerning for ischemia. Findings were discussed with Dr. Haro no acute cardiopulmonary abnormality Reviewed by: Juan Manuel Christensen on 04/16/2021 10:51 AM PDT Approved by: Juan Manuel Christensen on 04/16/2021 10:51 AM PDT Station ID: [id number]
[2021-04-16 11:21] LABS: B. PARAPERTUSSIS- RESP PCR PAN NOT DETECTED; B. PERTUSSIS- RESP PCR PANEL NOT DETECTED; C. PNEUMONIAE- RESP PCR PANEL NOT DETECTED; CORONAVIRUS 229E-RESP PCR NOT DETECTED; CORONAVIRUS HKU1-RESP PCR NOT DETECTED; CORONAVIRUS NL63-RESP PCR NOT DETECTED; CORONAVIRUS OC43-RESP PCR NOT DETECTED; HUMAN METAPNEUMOVIRUS NOT DETECTED; INFLUENZA A- RESP PCR PANEL NOT DETECTED; INFLUENZA B - RESP PCR PANEL NOT DETECTED; M. PNEUMONIAE- RESP PCR PANEL NOT DETECTED; PARAINFLUENZA VIRUS 1 NOT DETECTED; PARAINFLUENZA VIRUS 2 NOT DETECTED; PARAINFLUENZA VIRUS 3 NOT DETECTED; PARAINFLUENZA VIRUS 4 NOT DETECTED; RHINOVIRUS/ENTEROVIRUS NOT DETECTED; RSV- RESP PCR PANEL NOT DETECTED; SARS-CoV-2 -RESP PCR PANEL NOT DETECTED
[2021-04-16] MEDS ORDERED: ONDANSETRON ODT 4 MG TABLET TL PRN (11:35)
[2021-04-16] MEDS ORDERED: MAGNESIUM SULFATE 2 GRAM 2 GM/50 ML BAG IV ONE (11:49)
--- NOTE | 2021-04-16 11:53 | HISTORY & PHYSICAL EXAMINATION ---
Chief Complaint - Chief Complaint Chief Complaint: awoke 6 am with severe abdominal pain History of Present Illness - Admitted From Admitted From:: ed - History Obtained From Records Reviewed: yes History obtained from: pt Exam Limitations: none - History of Present Illness HPI Comment/Other: Awoke 6 am with severe abdominal pain and nausea. Never had prior similar symptoms. No prior abdominal surgery. She recently had 40 lb intentional weight loss. She had bread and spinich dip last pm. Feeling much improved. Denies nausea at this time and minimal pain and tenderness. History - Past Medical History Cardiovascular: reports: None Respiratory: reports: None Neuro: reports: None Endocrine/Autoimmune: reports: None GI: reports: None Psych: reports: Anxiety, Other MRSA Hx?: Yes - Past Surgical History HEENT: reports: Rhinoplasty Meds/Allgy - Home Medications Home Medications: Ambulatory Orders Medication Instructions Recorded Confirmed ALPRAZolam [Alprazolam] 1 mg PO TID PRN 05/20/17 04/16/21 Buspirone HCl 20 mg PO BID 05/20/17 04/16/21 Escitalopram Oxalate [Lexapro] 20 mg PO DAILY 05/20/17 04/16/21 LORazepam [Lorazepam] 1 - 2 mg PO DAILY PRN 05/20/17 04/16/21 Norethindrone AC-Eth Estradiol 1 tab PO DAILY 05/20/17 04/16/21 [Junel 1 mg-20 Mcg Tablet] Zolpidem Tartrate [Ambien] 10 mg PO DAILY 05/20/17 04/16/21 - Allergies Allergies/Adverse Reactions: Allergies Allergy/AdvReac Type Severity Reaction Status Date / Time No Known Drug Allergies Allergy Verified 04/16/21 07:23 Review of Systems - Other Findings Other Findings: 10 pt ros as above otherwise unremarkable Exam - Vital Signs Reviewed Vital Signs: Yes Vital Signs: Vital Signs x48h Temp Pulse Resp BP Pulse Ox 04/16/21 11:04 76 12 125/86 H 97 04/16/21 10:35 76 11 L 134/91 H 96 04/16/21 10:32 80 12 134/91 H 98 04/16/21 09:58 75 16 147/90 H 95 04/16/21 08:43 72 15 145/90 H 93 04/16/21 08:26 73 16 139/78 H 100 04/16/21 07:31 69 16 158/96 H 97 04/16/21 07:07 36.3 C L 64 16 179/95 H 97 - Physical Exam General Appearance: positive: No acute distress, Alert Eyes Bilateral: positive: PERRL, EOMI, No scleral icterus ENT: positive: No signs of dehydration Neck: positive: No JVD Respiratory: positive: No respiratory distress, Breath sounds nml Cardiovascular: positive: Regular rate & rhythm Abdomen: positive: No distention, Other (minimal right lower quadrant tenderness to deep palpation no peritoneal signs) Neurologic/Psychiatric: positive: Oriented x3 Conclusion/Plan - Problem List (1) Enteritis Conclusion/Plan: Plan admit for medical management with bowel rest, ivf, pain management as needed. Close observation. Ct scan report discussed with her. I also discussed doubtful in my opinion she has a closed loop bowel obstruction Treatment hypokalemia and hypomagnesium. Possible treatment elevated blood sugar. Recheck blood sugar and labs - Lab Results Fish Bones: 04/16/21 08:01 04/16/21 08:01 - Diagnostic Imaging Results Diagnostic Imaging Results: positive: Read independently (enteritis. closed loop bowel obstruction unlikely)
[2021-04-16] MEDS: POTASSIUM CHLOR 10 MEQ/100 ML 10 MEQ/100 ML BAG IV SCH ×6 (13:10→19:32)
[2021-04-16] MEDS: HYDROmorphone 0.5 MG/0.5 ML SYRINGE IVP PRN (13:18)
[2021-04-16] MEDS: ONDANSETRON 4 MG/2 ML VIAL IVP PRN (13:18)
[2021-04-16] MEDS: D5.45NS W/20 MEQ KCL 1,000 ML IV SCH ×2 (13:25→21:12)
[2021-04-16] MEDS: INSULIN REGULAR HUMAN 300 UNIT/3 ML VIAL SUBQ SCH ×3 (13:26→23:36)
--- NOTE | 2021-04-16 13:59 | PHARMACY PROGRESS NOTE ---
- Best Possible Medication History Admit Date and Time: 04/16/21 1135 Processed by: Nursing Medication History completed: Yes Patient Interview: Completed Secondary Source(s): Pharmacy records, Insurance records As the person ultimately responsible for medication therapy, providers are able to order a medication from an existing home medication list in [facility] via the "Reconcile Routine" prior to Confirmation of that medication by systems support engineer. Such practice is discouraged except when the physician, in their clinical judgment, deems that a medical need exists for a medication without regard to previous use.
[2021-04-16] MEDS: LORazepam 1 MG TABLET PO PRN ×2 (14:04→21:12)
[2021-04-16] MEDS: MAG HYDROX/AL HYDROX/SIMETH 30 ML UDC PO PRN (15:47)
[2021-04-16] MEDS: SODIUM CHLORIDE FLUSH 0.9% 10 ML SYRINGE IVP SCH ×2 (17:14→23:38)
[2021-04-16] MEDS: ETHINYL ESTRADIOL PO SCH (17:39)
[2021-04-16] MEDS: NORETHINDRONE PO SCH (17:39)
[2021-04-16] MEDS: FAMOTIDINE 20 MG TABLET PO SCH (21:12)
[2021-04-16] MEDS: busPIRone 5 MG TABLET PO SCH (21:13)
[2021-04-16] MEDS: ZOLPIDEM 5 MG TABLET PO PRN (21:25)
[2021-04-17] MEDS: ONDANSETRON 4 MG/2 ML VIAL IVP PRN ×2 (02:14→17:25)
[2021-04-17] MEDS: HYDROmorphone 0.5 MG/0.5 ML SYRINGE IVP PRN ×3 (02:14→19:41)
[2021-04-17] MEDS: SODIUM CHLORIDE FLUSH 0.9% 10 ML SYRINGE IVP PRN ×3 (02:15→19:41)
[2021-04-17] MEDS: D5.45NS W/20 MEQ KCL 1,000 ML IV SCH ×3 (04:57→20:41)
[2021-04-17] MEDS: LORazepam 1 MG TABLET PO PRN ×2 (05:07→16:50)
[2021-04-17 05:38] LABS: HCT - HEMATOCRIT 39.4 % (37.0-47.0); HGB - HEMOGLOBIN 13.1 g/dL (12.0-16.0); MEAN CORPUSCULAR HGB CONC 33.2 g/dL (32.0-36.0); MEAN CORPUSCULAR VOLUME 93.4 fL (81.0-99.0); MEAN PLATELET VOLUME 10.2 fL (7.9-10.8); RED BLOOD COUNT 4.22 10^6/uL (4.20-5.40); RED CELL DISTRIBUTION WIDTH 14.9 % (12.0-15.0); WHITE BLOOD COUNT 10.3 x10^3/uL (4.8-10.8)
[2021-04-17 05:43] LABS: CREATININE 0.7 mg/dL (0.4-1.0); MAGNESIUM 2.2 mg/dL (1.7-2.8); POTASSIUM 3.8 mmol/L (3.5-5.0)
[2021-04-17] MEDS: INSULIN REGULAR HUMAN 300 UNIT/3 ML VIAL SUBQ SCH ×2 (05:54→11:58)
[2021-04-17] MEDS: ESCITALOPRAM 10 MG TABLET PO SCH (08:39)
[2021-04-17] MEDS: FAMOTIDINE 20 MG TABLET PO SCH ×2 (08:40→20:18)
[2021-04-17] MEDS: busPIRone 5 MG TABLET PO SCH ×2 (08:40→20:17)
[2021-04-17] MEDS: SODIUM CHLORIDE FLUSH 0.9% 10 ML SYRINGE IVP SCH ×2 (08:41→16:50)
[2021-04-17] MEDS: NORETHINDRONE PO SCH (08:58)
[2021-04-17] MEDS: ETHINYL ESTRADIOL PO SCH (08:58)
[2021-04-17] MEDS: ACETAMINOPHEN 325 MG TABLET PO PRN ×2 (09:00→14:26)
--- NOTE | 2021-04-17 09:25 | PROVIDER PROGRESS NOTE ---
Subjective - Prog Note Date Prog Note Date: 04/17/21 - Subjective Pt reports feeling: Improved (minimal to no pain and no nausea. no bm or flatus) Objective - Vital Signs/Intake & Output Vital Signs: Vital Signs x48h Temp Pulse Resp BP Pulse Ox 04/17/21 07:43 37.2 C 78 18 139/92 H 97 04/17/21 05:03 37.2 C 86 16 154/94 H 96 Intake & Output: Intake & Output 04/14/21 04/15/21 04/16/21 04/17/21 23:59 23:59 23:59 23:59 Intake Total 3389.584 968.75 Output Total 1 Balance 3388.584 968.75 - Objective General Appearance: positive: No acute distress, Alert, Other (appears much improved) Eyes Bilateral: positive: PERRL, EOMI Neck: positive: No JVD Respiratory: positive: No respiratory distress Abdomen: positive: Non-tender, No distention Neurologic/Psychiatric: positive: Oriented x3 - Lab Results Fish Bones: 04/17/21 05:10 04/17/21 05:10 Other Labs: Lab Results x24hrs 04/17/21 04/17/21 04/16/21 Range/Units 05:10 05:10 10:18 WBC 10.3 (4.8-10.8) x10^3/uL RBC 4.22 (4.20-5.40) 10^6/uL Hgb 13.1 (12.0-16.0) g/dL Hct 39.4 (37.0-47.0) % MCV 93.4 (81.0-99.0) fL MCH 31.0 (27.0-31.0) pg MCHC 33.2 (32.0-36.0) g/dL RDW 14.9 (12.0-15.0) % Plt Count 215 (130-450) 10^3/uL MPV 10.2 (7.9-10.8) fL Sodium 134 L (135-145) mmol/L Potassium 3.8 (3.5-5.0) mmol/L Chloride 104 (101-111) mmol/L Carbon Dioxide 22 (21-32) mmol/L Anion Gap 8.0 (6-13) BUN 8 (6-20) mg/dL Creatinine 0.7 (0.4-1.0) mg/dL Estimated GFR (MDRD) 88 L (>89) Glucose 140 H (70-100) mg/dL Lactic Acid 1.9 (0.5-2.2) mmol/L Calcium 8.0 L (8.5-10.3) mg/dL Magnesium 2.2 (1.7-2.8) mg/dL Nasal Adenovirus (PCR) Nasal B. parapertussis DNA (PCR) Nasal Coronavir 229E PCR Nasal Coronavir HKU1 PCR Nasal Coronavir NL63 PCR Nasal Coronavir OC43 PCR Nasal Enterovir/Rhinovir PCR Nasal Influenza B PCR Nasal Influenza A PCR Nasal Parainfluen 1 PCR Nasal Parainfluen 2 PCR Nasal Parainfluen 3 PCR Nasal Parainfluen 4 PCR Nasal RSV (PCR) Nasal B.pertussis DNA PCR Nasal C.pneumoniae (PCR) [place] Human Metapneumo PCR Nasal M.pneumoniae (PCR) Nasal SARS-CoV-2 (PCR) Urine Opiates Screen (NEGATIVE) Ur Oxycodone Screen (NEGATIVE) Urine Methadone Screen (NEGATIVE) Ur Propoxyphene Screen (NEGATIVE) Ur Barbiturates Screen (NEGATIVE) Ur Tricyclics Screen (NEGATIVE) Ur Phencyclidine Scrn (NEGATIVE) Ur Amphetamine Screen (NEGATIVE) U Methamphetamines Scrn (NEGATIVE) U Benzodiazepines Scrn (NEGATIVE) Urine Cocaine Screen (NEGATIVE) U Cannabinoids Screen (NEGATIVE) 04/16/21 04/16/21 Range/Units 09:59 09:07 WBC (4.8-10.8) x10^3/uL RBC (4.20-5.40) 10^6/uL Hgb (12.0-16.0) g/dL Hct (37.0-47.0) % MCV (81.0-99.0) fL MCH (27.0-31.0) pg MCHC (32.0-36.0) g/dL RDW (12.0-15.0) % Plt Count (130-450) 10^3/uL MPV (7.9-10.8) fL Sodium (135-145) mmol/L Potassium (3.5-5.0) mmol/L Chloride (101-111) mmol/L Carbon Dioxide (21-32) mmol/L Anion Gap (6-13) BUN (6-20) mg/dL Creatinine (0.4-1.0) mg/dL Estimated GFR (MDRD) (>89) Glucose (70-100) mg/dL Lactic Acid (0.5-2.2) mmol/L Calcium (8.5-10.3) mg/dL Magnesium (1.7-2.8) mg/dL Nasal Adenovirus (PCR) NOT DETECTED Nasal B. parapertussis DNA (PCR) NOT DETECTED Nasal Coronavir 229E PCR NOT DETECTED Nasal Coronavir HKU1 PCR NOT DETECTED Nasal Coronavir NL63 PCR NOT DETECTED Nasal Coronavir OC43 PCR NOT DETECTED Nasal Enterovir/Rhinovir PCR NOT DETECTED Nasal Influenza B PCR NOT DETECTED Nasal Influenza A PCR NOT DETECTED Nasal Parainfluen 1 PCR NOT DETECTED Nasal Parainfluen 2 PCR NOT DETECTED Nasal Parainfluen 3 PCR NOT DETECTED Nasal Parainfluen 4 PCR NOT DETECTED Nasal RSV (PCR) NOT DETECTED Nasal B.pertussis DNA PCR NOT DETECTED Nasal C.pneumoniae (PCR) NOT DETECTED [place] Human Metapneumo PCR NOT DETECTED Nasal M.pneumoniae (PCR) NOT DETECTED Nasal SARS-CoV-2 (PCR) NOT DETECTED Urine Opiates Screen POSITIVE H (NEGATIVE) Ur Oxycodone Screen NEGATIVE (NEGATIVE) Urine Methadone Screen NEGATIVE (NEGATIVE) Ur Propoxyphene Screen NEGATIVE (NEGATIVE) Ur Barbiturates Screen NEGATIVE (NEGATIVE) Ur Tricyclics Screen NEGATIVE (NEGATIVE) Ur Phencyclidine Scrn NEGATIVE (NEGATIVE) Ur Amphetamine Screen NEGATIVE (NEGATIVE) U Methamphetamines Scrn NEGATIVE (NEGATIVE) U Benzodiazepines Scrn POSITIVE H (NEGATIVE) Urine Cocaine Screen NEGATIVE (NEGATIVE) U Cannabinoids Screen NEGATIVE (NEGATIVE) Assessment/Plan - Problem List (1) Enteritis Impression: much improved. labs much improved with kcl and magnesium. diet clears. anticipate she still has an ileus. home when adequate po, minimal to no pain, no nausea.
[2021-04-17] MEDS: ZOLPIDEM 5 MG TABLET PO PRN (22:26)
[2021-04-18] MEDS: LORazepam 1 MG TABLET PO PRN (00:47)
[2021-04-18] MEDS: SODIUM CHLORIDE FLUSH 0.9% 10 ML SYRINGE IVP SCH ×2 (00:48→08:54)
[2021-04-18] MEDS: D5.45NS W/20 MEQ KCL 1,000 ML IV SCH (04:13)
[2021-04-18] MEDS: ESCITALOPRAM 10 MG TABLET PO SCH (08:51)
[2021-04-18] MEDS: busPIRone 5 MG TABLET PO SCH (08:52)
[2021-04-18] MEDS: FAMOTIDINE 20 MG TABLET PO SCH (08:52)
[2021-04-18] MEDS: ETHINYL ESTRADIOL PO SCH (08:53)
[2021-04-18] MEDS: NORETHINDRONE PO SCH (08:53)
--- NOTE | 2021-04-18 10:35 | Discharge Plan ---
Discharge Plan Problem Reviewed?: Yes Disposition: Home, Self Care Condition: Good Diet: Soft (liquid to soft diet until no pain, cramping, nausea, burping, etc slowly advance diet to regular over several days to a week of two) Activity Restrictions: No Restrictions Shower Restrictions: No Driving Restrictions: No Health Concerns: enteritis. inflammation of the small intestine Plan of Treatment: mostly liguid to soft diet for several days Assessment: improved. pain much improved and intestinal function returning Additional Instructions or Follow Up instructions: use miralax, colace, milk of magnesia, etc as needed for constipation please follow up in the surgery office in about 2 weeks and as needed call for fever over 101, recurrent pain and nausea, vomiting, you may need to get a referral to the surgery office from your primary care provider surgery office number [phone] No Smoking: If you smoke, Please STOP! Call for help. Follow-up with: Rigoberto Merrill MD [Primary Care Provider] -
--- NOTE | 2021-04-18 10:41 | DISCHARGE SUMMARY ---
"Discharge Summary Admit Date: 04/16/21 Discharge Date: 04/18/21 Discharging Provider: anuj springer Code Status: Attempt Resuscitation Discharge Disposition: 01 Home, Self Care - DIAGNOSES Admission Diagnoses: enteritis Discharge Diagnoses with Status of Each Condition: home much improved and in good condition - HPI History of Present Illness: Presented with acute onset abdominal pain. Ct scan enteritis, possible small bowel obstruction - CONSULTS | PROCEDURES Procedures: Pain management, bowel rest, ivf, replace electrolytes with kcl and mg - HOSPITAL COURSE Hospital Course: improved quickly with medical management and electrolyte replacement - ALLERGIES Allergies/Adverse Reactions: Allergies Allergy/AdvReac Type Severity Reaction Status Date / Time No Known Drug Allergies Allergy Verified 04/16/21 07:23 - MEDICATIONS Home Medications: Ambulatory Orders Medication Instructions Recorded Confirmed ALPRAZolam [Alprazolam] 1 mg PO TID PRN 05/20/17 04/16/21 Buspirone HCl 20 mg PO BID 05/20/17 04/16/21 Escitalopram Oxalate [Lexapro] 20 mg PO DAILY 05/20/17 04/16/21 LORazepam [Lorazepam] 1 - 2 mg PO DAILY PRN 05/20/17 04/16/21 Norethindrone AC-Eth Estradiol 1 tab PO DAILY 05/20/17 04/16/21 [Junel 1 mg-20 Mcg Tablet] Zolpidem Tartrate [Ambien] 10 mg PO DAILY 05/20/17 04/16/21 - PHYSICAL EXAM AT DISCHARGE General Appearance: positive: No acute distress, Alert Eyes Bilateral: positive: PERRL, EOMI, No scleral icterus ENT: positive: No signs of dehydration Neck: positive: No JVD Respiratory: positive: No respiratory distress Abdomen: positive: Non-tender, No distention Neurologic/Psychiatric: positive: Oriented x3 - LABS Result Diagrams: 04/17/21 05:10 04/17/21 05:10 - DIAGNOSTIC IMAGING Diagnostic Imaging Results: Read contemporaneously - QUALITY (Female Hip Fx Only) Was patient sent home on osteoporosis medication?: No - FOLLOW UP Follow Up: Surgery office. Anuj Springer MD in 2 weeks and as needed [phone]. please call to make an appointment"
[2021-04-18 10:59] VITALS: BP 145/79
[2021-04-18] MEDS: MAG HYDROX/AL HYDROX/SIMETH 30 ML UDC PO PRN (11:38)
[2021-04-18] MEDS: ACETAMINOPHEN 325 MG TABLET PO PRN (11:38)
== END 2021-04-18 12:02 | disposition home or self-care (01) ==
LOC: EDUNIT# → ED 07:07 → MS2 11:35
PROVIDERS: ADMIT Surgery; ATTEND Surgery
DX: K52.9 Noninfective gastroenteritis and colitis, unspecified (principal); E87.6 Hypokalemia; E83.42 Hypomagnesemia; F41.9 Anxiety disorder, unspecified; Z20.822 Contact with and (suspected) exposure to COVID-19; Z79.899 Other long term (current) drug therapy
CPT/HCPCS: 0202U; 36415; 74177; 80048; 80053; 80306; 80320; 81003; 83605; 83690; 83735; 85025; 85027; 96361; 96365; 96366; 96375; 96376; 99284; 99285; A9270; G0378; J1170; J1815; J8499; Q9967; 81001; 87086